=== PATIENT | male | born 1990 | race Native Hawaiian/Other Pacific Islander ===

== ENCOUNTER 2017-04-21 10:58 | Emergency (ER) | payer OTHER ==
[2017-04-21 13:43] LABS: BASO % 0.4 % (0.0-1.0); EOS # 0.1 10^3/uL (0.0-0.50); EOS % 0.9 % (0.0-3.0); HEMATOCRIT 45.5 % (42.0-52.0); HEMOGLOBIN 15.8 g/dl (14.0-18.0); IMMATURE GRANULOCYTE % 0.4 % (0-3.0); LYMPH # 2.4 10^3/uL (1.5-6.5); LYMPH % 30.8 % (24.0-44.0); MEAN CORPUSCULAR HEMOGLOBIN 31.2 pg (27.0-33.0); MEAN CORPUSCULAR HGB CONC 34.7 g/dl (32.0-36.5); MEAN CORPUSCULAR VOLUME 89.7 fl (80.0-96.0); MONO # 0.4 10^3/uL (0.0-0.8); MONO % 4.9 % (0.0-5.0); NEUTROPHILS # 4.9 10^3/uL (1.8-7.7); NEUTROPHILS % 62.6 % (36.0-66.0); PLATELET COUNT, AUTOMATED 295 10^3/uL (150-450); RED BLOOD COUNT 5.07 10^6/uL (4.30-6.10); RED CELL DISTRIBUTION WIDTH 11.9 % (11.5-14.5); WHITE BLOOD COUNT 7.8 10^3/uL (4.0-10.0)
[2017-04-21 14:00] LABS: ALBUMIN 4.4 GM/DL (3.2-5.2); ALBUMIN/GLOBULIN RATIO 1.13 (1.00-1.93); ALKALINE PHOSPHATASE 82 U/L (45-117); ALT/SGPT 41 U/L (12-78); ANION GAP 7 MEQ/L (8-16); AST/SGOT 19 U/L (7-37); BILIRUBIN,TOTAL 0.4 MG/DL (0.2-1.0); BLOOD UREA NITROGEN 12 MG/DL (7-18); CALCIUM LEVEL 9.4 MG/DL (8.5-10.1); CARBON DIOXIDE LEVEL 29 MEQ/L (21-32); CHLORIDE LEVEL 105 MEQ/L (98-107); GLOMERULAR FILTRATION RATE > 60.0 (>60); GLUCOSE, FASTING 89 MG/DL (70-100); LIPASE 109 U/L (73-393); POTASSIUM SERUM 4.1 MEQ/L (3.5-5.1); SODIUM LEVEL 141 MEQ/L (136-145); TOTAL PROTEIN 8.3 GM/DL (6.4-8.2)
[2017-04-21] MEDS: ONDANSETRON 4 MG ORAL DISINTEGRATING TAB (S0181) PO (15:00)
== END 2017-04-21 15:12 | disposition home or self-care (01) ==
LOC: M ED 10:58
DX: J30.9 Allergic rhinitis, unspecified (principal); R11.0 Nausea; T36.0X5A Adverse effect of penicillins, initial encounter; G47.00 Insomnia, unspecified; Z79.899 Other long term (current) drug therapy
CPT/HCPCS: 71046

== ENCOUNTER 2017-05-12 12:48 | Emergency (ER) | payer OTHER | END 2017-05-12 15:21 | disposition home or self-care (01) | LOC: M ED 12:48 | DX: G89.29 Other chronic pain (principal); M54.5 Low back pain | CPT/HCPCS: 99283 ==

== ENCOUNTER → 2017-07-02 | Outpatient (CLI) | payer OTHER ==
[~2017-07-02] MED LIST: METHACHOLINE KIT (J7674) INH
== END ==
LOC: M CARPUL 09:03
DX: R06.00 Dyspnea, unspecified (principal)
CPT/HCPCS: J7674

== ENCOUNTER → 2017-08-01 | Outpatient (CLI) | payer OTHER | LOC: M CARPUL 09:34 | DX: R06.00 Dyspnea, unspecified (principal) | CPT/HCPCS: 93306 ==

== ENCOUNTER → 2017-08-28 | Outpatient (CLI) | payer OTHER | LOC: M CARPUL 08:14 | DX: R06.00 Dyspnea, unspecified (principal) ==

== ENCOUNTER → 2017-10-07 | Outpatient (CLI) | payer OTHER | LOC: M CARPUL 09:00 | DX: R06.00 Dyspnea, unspecified (principal) | CPT/HCPCS: 94621 ==